=== PATIENT | male | born 1970 | race Caucasian/White ===

== ENCOUNTER → 2021-11-05 | Day surgery (SDC) | payer BC ==
--- NOTE | 2021-11-03 08:53 | PCM.SN.2 ---
- Free Text/Narrative Note: Right selective femoral nerve block at the adductor canal for post-procedure pain control under US guidance requested by Dr. Fuchs. Time Out: 850 Start: 850 End: 854 Chart reviewed. Consent signed. Questions answered. Appropriate monitors applied. Time out performed. Right mid-shaft femur identified with ultrasound, scanning medially of femur, the femoral artery in the adductor canal visualized, and the femoral nerve located laterally to the artery. The skin was prepped lateral to the ultrasound probe with chlorahexadine times two. The 21ga 4 insulated block needle was inserted under direct ultrasound guidance into the adductor canal. 20mL of 0.5% ropivacaine with 1:200,000 epinephrine was injected circumferentially around the nerve with intermittent negative aspiration noted. Patient tolerated the procedure well. Sterile technique noted along with sterile gloves, mask, and sterile probe cover. See picture on progress note and vital signs on nurses notes. Block completed in PACU. Thank you, Marie Parrish CRNA
--- NOTE | 2021-11-03 11:46 | PCM.PREANE ---
Preanesthetic Assessment - Procedure Proposed Procedure: Right Total Knee Arthroplasty - Anesthesia/Transfusion/Family Hx Anesthesia History: Prior Anesthesia Without Reaction Family History of Anesthesia Reaction: No Transfusion History: No Prior Transfusion(s) Intubation History: Unknown - Review of Systems General: No Symptoms Pulmonary: No Symptoms Cardiovascular: No Symptoms (HTN, Elevated cholesterol) Gastrointestinal: No Symptoms (GERD: controlled) Neurological: No Symptoms (History of Back pain: 11/30 History of vertigo/menierres disease), Numbness (bilateral feet numbness) Other: Reports: None - Physical Assessment NPO Status Date: 11/04/21 NPO Status Time: 22:00 Vital Signs: HR: 70 Sat: 96% Temp: 96/9 B/P: 149/107 Resp: 16 Height: 1.83 m Weight: 110 kg ASA Class: 3 Mental Status: Alert & Oriented x3 Airway Class: Mallampati = 2 Dentition: Reports: Normal Dentition, [place](s), [place] Thyro-Mental Finger Breadths: 3 Mouth Opening Finger Breadths: 3 ROM/Head Extension: Full Lungs: Clear to Auscultation, Normal Respiratory Effort Cardiovascular: Regular Rate, Regular Rhythm, No Murmurs - Lab Values: All labs reviewed and noted and within acceptable ranges to proceed with scheduled procedure. - Imaging/EKG Impressions: EKG: SR rate=67 CXR: negative - Allergies Allergies/Adverse Reactions: Allergies Allergy/AdvReac Type Severity Reaction Status Date / Time oxycodone Allergy Dizziness Verified 11/08/16 11:02 - Anesthesia Plan Pre-Op Medication Ordered: Other (Preoperative oral pain meds (lyrica, tylenol, oxycontin): @ 0626) - Acknowledgements Anesthesia Type Planned: Spinal (Right Adductor Canal Block under US guidance for post operative pain control requested by Dr. Fuchs.) Pt an Appropriate Candidate for the Planned Anesthesia: Yes Alternatives and Risks of Anesthesia Discussed w Pt/Guardian: Yes Pt/Guardian Understands and Agrees with Anesthesia Plan: Yes PreAnesthesia Questionnaire Cardiovascular History: Reports: Hypertension - Past Surgical History Musculoskeletal Surgical History: Reports: Other (See Below) - HOME MEDS Home Medications: Home Meds Simvastatin [Zocor] 20 mg PO DAILY 12/06/15 [History] Benazepril/Hydrochlorothiazide [Benazepril-HCTZ 20-12.5 MG] 1 tab PO DAILY 11/08/16 [History] carvediloL [Carvedilol] 12.5 mg PO BID 11/08/16 [History] Aspirin [Aspirin EC] 325 mg PO BID #60 tab 11/04/21 [Rx] Cyclobenzaprine [Flexeril] 10 mg PO BID PRN #20 tab 11/04/21 [Rx] oxyCODONE 5 - 10 mg PO Q4H PRN #40 tab 11/04/21 [Rx] - CURRENT (IN HOUSE) MEDS Current Meds: Current Medications Lactated Ringer's (Ringers, Lactated) 1,000 mls @ 125 mls/hr IV ASDIRECTED YOHANNES Stop: 11/05/21 23:00 Lidocaine/Sodium Bicarbonate (Lidocaine 1%/Sod Bicarbonate In Ns 8.4% 1 Ml Syringe) 0.25 ml IDERM ONETIME PRN PRN Reason: Prior to IV Start Stop: 11/05/21 18:00 Sodium Chloride (Sodium Chloride 0.9% 10 Ml Syringe) 10 ml FLUSH ASDIRECTED PRN PRN Reason: Keep Vein Open Stop: 11/05/21 18:00
[~2021-11-05] MED LIST: Acetaminophen 325 MG Tab PO SCH; EPINEPHrine 1 MG/ML SDV ONE; Ketamine 500 mg/10 ML MDV ONE; Ketorolac 30 MG/ML SDV ONE; Lactated Ringers 1,000 ML ONE; Lidocaine 1%/Sod Bicarbonate in NS 8.4% 1 ML Syringe IDERM PRN; Midazolam 1 MG/ML 2 ML SDV IVPUSH PRN; Midazolam 1 MG/ML 2 ML SDV ONE; Ondansetron 4 MG/2 ML SDV IVPUSH PRN; Ondansetron 4 MG/2 ML SDV ONE; Pregabalin 25 MG Cap PO SCH; Propofol 200 MG/20 ML SDV ONE; Ropivacaine 0.5% 5 MG/ML 30 ML SDV ONE; Scopolamine 1.5 MG Transdermal Patch TOP ONE; Sodium Chloride 0.9% 10 ML Syringe FLUSH PRN; ceFAZolin 1 GM Vial ONE; diphenhydrAMINE 50 MG/ML SDV IVPUSH PRN; ePHEDrine 50 MG/ML SDV IVPUSH PRN; fentaNYL 100 MCG/2 ML SDV IVPUSH PRN; fentaNYL 100 MCG/2 ML SDV ONE; oxyCODONE 5 MG Tab PO PRN; oxyCODONE ER 10 MG TAB.ER PO SCH
[2021-11-05] MEDS: Lactated Ringers 1,000 ML IV SCH ×2 (06:15→16:35)
[2021-11-05] MEDS: Morphine 8 MG, EPINEPHrine 0.3 MG, Cefuroxime 750 MG, Ketorolac 30 MG, Sodium Chloride ... PRN ×10 (08:02→08:17)
[2021-11-05] MEDS: Vancomycin 1 GM SDV ONE ×2 (08:07→08:24)
--- NOTE | 2021-11-05 09:05 | PCM.POSTAN ---
POST ANESTHESIA ASSESSMENT - MENTAL STATUS Mental Status: Alert - VITAL SIGNS Vital Signs: Last Vital Signs Temp 36.9 C 11/05/21 08:45 Pulse 91 11/05/21 08:45 Resp 10 L 11/05/21 08:45 BP 115/73 11/05/21 08:45 Pulse Ox 94 L 11/05/21 08:45 - RESPIRATORY Respiratory Status: Respiratory Rate WNL, Airway Patent, O2 Saturation Stable, Supplemental Oxygen - CARDIOVASCULAR CV Status: Pulse Rate WNL, Blood Pressure Stable - GASTROINTESTINAL GI Status: No Symptoms - POST OP HYDRATION Hydration Status: Adequate & Stable
--- NOTE | 2021-11-05 09:43 | PCM48HPAN ---
Post Anesthesia Note - EVALUATION WITHIN 48HRS OF ANESTHETIC Vital Signs in Normal Range: Yes Patient Participated in Evaluation: Yes Respiratory Function Stable: Yes Airway Patent: Yes Cardiovascular Function Stable: Yes Hydration Status Stable: Yes Pain Control Satisfactory: Yes Nausea and Vomiting Control Satisfactory: Yes Mental Status Recovered: Yes Vital Signs: Last Vital Signs Temp 36.6 C 11/05/21 09:30 Pulse 82 11/05/21 09:30 Resp 10 L 11/05/21 09:30 BP 134/80 11/05/21 09:30 Pulse Ox 92 L 11/05/21 09:30
--- NOTE | 2021-11-05 09:47 | CR ---
Right knee: AP and crosstable lateral views of the right knee were obtained. Comparison: Prior CT right knee study of 10/23/21. Knee prosthesis is noted. Patellar prosthesis is also seen. Components are aligned. Underlying bony structures show nothing acute. Soft tissue air is noted. Impression: 1. Satisfactory postoperative radiographic appearance of recently placed right knee prostheses. Diagnostic code #2
[2021-11-05 16:30] VITALS: BP 135/86; PULSE 81
--- NOTE | 2021-11-26 08:02 | PCM.OPNOTE ---
- General Post-Op/Procedure Note Date of Surgery/Procedure: 11/05/21 Operative Procedure(s): right total knee arthroplasty with red pradeep robotics Pre Op Diagnosis: right knee osteoarthrosis Post-Op Diagnosis: Same Anesthesia Technique: Local, MAC, Spinal Primary Surgeon: Harish Fuchs Anesthesia Provider: Marie Parrish Metal Off Bearer: Samantha Urban Metal Off Bearer: Hansa Hdz EBL in mLs: 200 Complications: None Condition: Good Free Text/Narrative:: 05/27 9mm 38x11
--- NOTE | 2021-11-26 08:50 | OR ---
DATE OF OPERATION: 11/05/2021 SURGEON: Harish Fuchs MD OPERATION PERFORMED: Right total knee arthroplasty with Jasper Papo robotics. PREOPERATIVE DIAGNOSIS: Right knee osteoarthrosis. POSTOPERATIVE DIAGNOSIS: Right knee osteoarthrosis. ANESTHESIA: Local MAC with spinal. ANESTHESIA PROVIDER: Marie Parrish CRNA ASSISTANTS: Samantha Urban PA-C and Hansa Hdz LPN ESTIMATED BLOOD LOSS: 200 mL. COMPLICATIONS: None. CONDITION: Stable. IMPLANTS: 1. Jasper size 7 press-fit CR femur. 2. Danny size 7 press-fit tibial baseplate. 3. Danny size 7, 9 mm CS polyethylene insert. 4. Jasper size 38 x 11 mm press-fit patella. DESCRIPTION OF PROCEDURE: The patient was identified in the preop holding area. Proper site was marked and identified by the surgeon. The patient was taken back to the operating theater, where after adequate anesthesia, the patient's right lower extremity had a nonsterile tourniquet applied and then it was sterilely prepped and draped in the usual sterile fashion. OR time-out was performed. The patient received 2 g IV Ancef. Leg flores was then applied to the right lower extremity. At this time, the right lower extremity was exsanguinated. Tourniquet was insufflated to 250 mmHg. Standard anterior incision was made. Medial parapatellar arthrotomy was created. Deep fibers of the MCL were raised and anterior fat pad was resected. Attention was turned to the patella. Patella measured a 26, it was resected to a 15 for a 38 x 11 mm patella. Drill holes were then drilled. Attention was then turned to the femur. Two 4.0 Schanz pins were placed intra-incisionally on the femur for the Danny Papo robotic array and then 2 more were placed on the tibia 3 fingerbreadths below the tibial tubercle. The Danny Papo robotic arrays were placed on both the femur and the tibia at this time as well as checkpoints on the femur and tibia. Hip center rotation was then obtained. The medial and lateral malleoli were marked as well as the checkpoints were marked for the Danny Papo robotic plan. The patient's knee was brought to full extension, varus and valgus stresses were applied, and then into 90 degrees of flexion. Danny Papo robotic plan for this patient was then undertaken to match the flexion and extension gaps. A straight saw blade was then brought in. Tibial cut was completed as well as an anterior femoral cut, anterior chamfer cut, and posterior femoral cut. Saw blade was then switched out and the distal femoral cut as well as the posterior chamfer cut was completed. All bony fragments were removed. At this time, medial and lateral menisci were resected as well as any posterior osteophytes. Attention was turned to the tibia. The size 7 trial baseplate was placed on the tibia and a size 7 trial femur was placed on the femur. A size 7, 9 mm trial poly was placed. The patient's knee was brought to full extension and flexion. Varus and valgus stresses were applied, was found to be stable with no instability. No signs of liftoff or loosening on the tibial baseplate. At this time, femoral drill holes were drilled, and the tibia was stamped and drilled in proper rotation. All trial implants were then removed. The size 7 tibial baseplate was impacted into place, size 7 femoral component was impacted into place, and then a size 7, 9 mm CS polyethylene insert was impacted into place. A size 38 x 11 mm press-fit patella was then press-fit into place. The tourniquet was deflated. Bleeders were cauterized. 1 L pulse lavage irrigation with Ancef was irrigated through the knee along with 400 mL Irrisept irrigation. Periarticular injection was completed. Topical tranexamic acid and vancomycin powder were applied. All checkpoints and pins were removed. At this point, a #2 barbed suture was used for closure of the medial parapatellar arthrotomy in flexion. 2- 0 Vicryl and Stratafix were used for subcutaneous closure. Prineo was used for cutaneous closure. 3-0 nylons were used for closure of the pin holes on the tibia. The patient had a sterile soft dressing applied. The patient had an CHARISSE wrap applied and was sent to PACU in stable condition. The patient tolerated the procedure well. MMODAL /[id number]
== END | disposition home or self-care (01) ==
LOC: JD.SDS 06:24
PROVIDERS: ATTEND Orthopaedic Surgery
DX: M17.11 Unilateral primary osteoarthritis, right knee (principal); K21.9 Gastro-esophageal reflux disease without esophagitis; I10 Essential (primary) hypertension; E78.5 Hyperlipidemia, unspecified; G89.29 Other chronic pain; Z98.890 Other specified postprocedural states; Z88.5 Allergy status to narcotic agent; Z91.030 Bee allergy status; Z79.899 Other long term (current) drug therapy; Z79.82 Long term (current) use of aspirin
CPT/HCPCS: 27447; 73560; 97110; 97116; 97161; A9270; C1713; C1776; J0171; J0690; J0697; J1200; J1885; J2250; J2270; J2370; J2405; J2704; J2795; J3010; J3370; J7120; 01402; 64450; 76942

== ENCOUNTER 2021-11-08 21:53 | Emergency (ER) | payer BC ==
[2021-11-08 22:03] VITALS: BP 134/79; PULSE 82
--- NOTE | 2021-11-08 22:19 | EDM.PDOC ---
ED HPI GENERAL MEDICAL PROBLEM - General Chief Complaint: Lower Extremity Injury/Pain Stated Complaint: SWOLLEN RT KNEE/FEVER Time Seen by Provider: 11/08/21 22:18 - History of Present Illness INITIAL COMMENTS - FREE TEXT/NARRATIVE: 51-year-old male presents the emergency room with right knee pain and swelling. Patient is 2 weeks post right knee arthroplasty done with Dr. Fuchs. He has done well postoperatively however over the last day and a half or so he has noticed increased swelling to the knee and today he noticed increased redness along the medial aspect of the knee as well as some warmth. Patient has not had any f robbi or chills. He has decreased his activity a little bit today. Right Knee Pain Score (Numeric/FACES): 4 - Related Data Allergies Allergy/AdvReac Type Severity Reaction Status Date / Time bee pollen Allergy Anaphylactic Verified 11/05/21 07:07 Shock hydrocodone Allergy Hallucinati Verified 11/08/21 22:04 ons Home Meds: Home Meds Benazepril/Hydrochlorothiazide [Benazepril-HCTZ 20-12.5 MG] 1 tab PO DAILY 11/08/16 [History] Aspirin [Aspirin EC] 325 mg PO BID #60 tab 11/04/21 [Rx] Cyclobenzaprine [Flexeril] 10 mg PO BID PRN #20 tab 11/04/21 [Rx] oxyCODONE 5 - 10 mg PO Q4H PRN #40 tab 11/04/21 [Rx] Aspirin [Aspirin EC] 81 mg PO DAILY 11/05/21 [History] Cholecalciferol (Vitamin D3) [Vitamin D3] 1 cap PO DAILY 11/05/21 [History] Diclofenac Sodium [Voltaren] 1 tab PO DAILY 11/05/21 [History] Multivitamin 1 tab PO DAILY 11/05/21 [History] Ranitidine [Zantac] 1 tab PO DAILY 11/05/21 [History] atorvaSTATin Calcium [Lipitor] 40 mg PO DAILY 11/05/21 [History] Past Medical History Cardiovascular History: Reports: Hypertension - Past Surgical History HEENT Surgical History: Reports: Tonsillectomy Cardiovascular Surgical History: Reports: None Musculoskeletal Surgical History: Reports: Other (See Below) Other Musculoskeletal Surgeries/Procedures:: right knee replacement Social & Family History - Tobacco Use Tobacco Use Status *Q: Never Tobacco User Second Hand Smoke Exposure: No - Caffeine Use Caffeine Use: Reports: Coffee, Soda - Recreational Drug Use Recreational Drug Use: No Review of Systems - Review of Systems Review Of Systems: See Below Constitutional: Reports: No Symptoms Respiratory: Reports: No Symptoms Cardiovascular: Reports: No Symptoms GI/Abdominal: Reports: No Symptoms ED EXAM, GENERAL - Physical Exam Exam: See Below Exam Limited By: No Limitations General Appearance: Alert, No Apparent Distress Respiratory/Chest: No Respiratory Distress, Lungs Clear, Normal Breath Sounds Cardiovascular: Regular Rate, Rhythm, No Edema, No Rub Extremities: Other (Exam of the right knee shows some medial redness with some slight warmth mean. The redness is demarcating somewhat. No drainage noted incision healing well mild swelling to the knee.) Course - Vital Signs Last Recorded V/S: Last Vital Signs Temp 36.3 C 11/08/21 22:03 Pulse 82 11/08/21 22:03 Resp 18 11/08/21 22:03 BP 134/79 11/08/21 22:03 Pulse Ox 95 11/08/21 22:03 - Orders/Labs/Meds Labs: Laboratory Tests 11/08/21 11/08/21 11/08/21 Range/Units 22:45 22:45 22:45 WBC 5.75 (4.23-9.07) K/mm3 RBC 4.52 L (4.63-6.08) M/mm3 Hgb 13.5 L D (13.7-17.5) gm/dl Hct 40.1 (40.1-51.0) % MCV 88.7 D (79.0-92.2) fl MCH 29.9 (25.7-32.2) pg MCHC 33.7 (32.2-35.5) g/dl RDW Std Deviation 42.7 (35.1-43.9) fL Plt Count 197 (163-337) K/mm3 MPV 9.4 (9.4-12.3) fl Neutrophils % (Manual) 61 H (40-60) % Band Neutrophils % 0 (0-10) % Lymphocytes % (Manual) 21 (20-40) % Atypical Lymphs % 0 % Monocytes % (Manual) 13 H (2-10) % Eosinophils % (Manual) 5 (0.8-7.0) % Basophils % (Manual) 0 L (0.2-1.2) Platelet Estimate Adequate Plt Morphology Comment Normal RBC Morph Comment Normal ESR 60 H (0-15) mm/hr Sodium 138 (136-145) mEq/L Potassium 3.9 (3.5-5.1) mEq/L Chloride 100 (98-107) mEq/L Carbon Dioxide 31 (21-32) mEq/L Anion Gap 10.9 (5-15) BUN 19 H (7-18) mg/dL Creatinine 0.9 (0.7-1.3) mg/dL Est Cr Clr Drug Dosing 104.19 mL/min Estimated GFR (MDRD) > 60 (>60) mL/min BUN/Creatinine Ratio 21.1 H (14-18) Glucose 122 H (70-99) mg/dL Calcium 9.0 (8.5-10.1) mg/dL Total Bilirubin 0.5 (0.2-1.0) mg/dL AST 15 (15-37) U/L ALT 32 (16-63) U/L Alkaline Phosphatase 54 (46-116) U/L C-Reactive Protein 11.5 H* (<1.0) mg/dL Total Protein 6.8 (6.4-8.2) g/dl Albumin 3.0 L (3.4-5.0) g/dl Globulin 3.8 gm/dL Albumin/Globulin Ratio 0.8 L (1-2) - Re-Assessments/Exams Free Text/Narrative Re-Assessment/Exam: 11/09/21 00:05 Case and labs discussed with Dr. Fuchs who would like to see the patient in the office tomorrow, Tuesday. Departure - Departure Time of Disposition: 00:05 Disposition: Home, Self-Care 01 Clinical Impression: Postoperative pain of knee, Knee swelling - Discharge Information Referrals: John Coker MD [Primary Care Provider] - Forms: ED Department Discharge Additional Instructions: Return to the emergency room with any questions problems or worsening symptoms. Follow-up with Dr. Fuchs this morning, call his office as soon as they open for an appointment time. Sepsis Event Note (ED) - Focused Exam Vital Signs: Vital Signs Temp Pulse Resp BP Pulse Ox 11/08/21 22:03 36.3 C 82 18 134/79 95
== END 2021-11-09 00:13 | disposition home or self-care (01) ==
LOC: JD.ED 21:53
DX: G89.18 Other acute postprocedural pain (principal); M25.561 Pain in right knee; M79.89 Other specified soft tissue disorders; I10 Essential (primary) hypertension; Z91.030 Bee allergy status; Z88.5 Allergy status to narcotic agent; Z79.82 Long term (current) use of aspirin; Z79.899 Other long term (current) drug therapy
CPT/HCPCS: 36415; 80053; 85007; 85027; 85652; 86140; 99283

== ENCOUNTER 2022-10-18 12:07 | Day surgery (SDC) | payer BC ==
[~2022-10-18 12:07] MED LIST changes: -Acetaminophen 325 MG Tab PO SCH; +Bupivacaine 0.25% 10 ML SDV ONE; +EPINEPHrine 1 MG/ML 30 ML MDV IRR SCH; -EPINEPHrine 1 MG/ML SDV ONE; -Ketamine 500 mg/10 ML MDV ONE; -Ketorolac 30 MG/ML SDV ONE; +Lactated Ringers 1,000 ML IV SCH; -Lactated Ringers 1,000 ML ONE; +Lidocaine 1% 6 ML ONE; -Midazolam 1 MG/ML 2 ML SDV IVPUSH PRN; -Ondansetron 4 MG/2 ML SDV IVPUSH PRN; -Pregabalin 25 MG Cap PO SCH; -Ropivacaine 0.5% 5 MG/ML 30 ML SDV ONE; -Scopolamine 1.5 MG Transdermal Patch TOP ONE; +Sodium Chloride 0.9% 10 ML Syringe FLUSH SCH; -ceFAZolin 1 GM Vial ONE; -diphenhydrAMINE 50 MG/ML SDV IVPUSH PRN; -ePHEDrine 50 MG/ML SDV IVPUSH PRN; -fentaNYL 100 MCG/2 ML SDV IVPUSH PRN; -oxyCODONE 5 MG Tab PO PRN; -oxyCODONE ER 10 MG TAB.ER PO SCH
[2022-10-18] MEDS ORDERED: Lactated Ringers 1,000 ML ONE (12:34)
[2022-10-18] MEDS ORDERED: ceFAZolin 2 GM Vial ONE (12:45)
[2022-10-18] MEDS ORDERED: Dexamethasone 4 MG/ML 5 ML MDV ONE (13:15)
[2022-10-18] MEDS ORDERED: Ketorolac 30 MG/ML SDV ONE (13:24)
[2022-10-18] MEDS ORDERED: fentaNYL 100 MCG/2 ML SDV IVPUSH PRN (13:43)
[2022-10-18] MEDS ORDERED: HYDROmorphone 0.5 MG/0.5 ML Syringe IVPUSH PRN (13:43)
[2022-10-18] MEDS ORDERED: oxyCODONE 5 MG Tab PO SCH (14:40)
[2022-10-18 16:44] VITALS: BP 120/83; PULSE 70
== END 2022-10-18 15:25 | disposition home or self-care (01) ==
LOC: JD.SDS 12:07
PROVIDERS: ATTEND Orthopaedic Surgery
DX: T84.82XA Fibrosis due to internal orthopedic prosthetic devices, implants and grafts, initial encounter (principal); I10 Essential (primary) hypertension; E78.00 Pure hypercholesterolemia, unspecified; K21.9 Gastro-esophageal reflux disease without esophagitis; Z96.651 Presence of right artificial knee joint; Z79.899 Other long term (current) drug therapy; Z79.82 Long term (current) use of aspirin; Z88.5 Allergy status to narcotic agent; Z91.030 Bee allergy status; Z98.890 Other specified postprocedural states
CPT/HCPCS: 29875; A9270; J0171; J0690; J1100; J1885; J2250; J2405; J2704; J3010; J3490; J7120; 01400

== ENCOUNTER 2023-05-26 10:41 | Day surgery (SDC) | payer BC, OTHER ==
[~2023-05-26 10:41] MED LIST changes: -Bupivacaine 0.25% 10 ML SDV ONE; -EPINEPHrine 1 MG/ML 30 ML MDV IRR SCH; +Lidocaine 1% 5 ML VIAL ONE; -Lidocaine 1% 6 ML ONE; -Lidocaine 1%/Sod Bicarbonate in NS 8.4% 1 ML Syringe IDERM PRN; -Ondansetron 4 MG/2 ML SDV ONE
[2023-05-26] MEDS ORDERED: fentaNYL 100 MCG/2 ML SDV ONE (11:17)
[2023-05-26] MEDS ORDERED: Midazolam 1 MG/ML 2 ML SDV ONE (11:17)
[2023-05-26] MEDS ORDERED: Ropivacaine 0.5% 5 MG/ML 30 ML SDV ONE (11:26)
[2023-05-26] MEDS ORDERED: EPINEPHrine 1 MG/ML SDV ONE (11:40)
[2023-05-26] MEDS ORDERED: Dexamethasone 4 MG/ML 5 ML MDV ONE (12:10)
[2023-05-26] MEDS ORDERED: Ondansetron 4 MG/2 ML SDV ONE (12:10)
[2023-05-26] MEDS ORDERED: ceFAZolin 2 GM Vial ONE (12:10)
[2023-05-26] MEDS ORDERED: Lactated Ringers 1,000 ML ONE (12:12)
[2023-05-26] MEDS ORDERED: HYDROmorphone 0.5 MG/0.5 ML Syringe IVPUSH PRN (12:35)
[2023-05-26] MEDS ORDERED: fentaNYL 100 MCG/2 ML SDV IVPUSH PRN (12:35)
[2023-05-26] MEDS ORDERED: Ketorolac 30 MG/ML SDV ONE (13:00)
[2023-05-26] MEDS ORDERED: oxyCODONE 5 MG Tab PO SCH (13:37)
[2023-05-26 14:51] VITALS: PULSE 78
[2023-05-26 15:33] VITALS: BP 136/78
== END 2023-05-26 15:30 | disposition home or self-care (01) ==
LOC: JD.SDS 10:41
PROVIDERS: ATTEND Orthopaedic Surgery
DX: S46.211A Strain of muscle, fascia and tendon of other parts of biceps, right arm, initial encounter (principal); I10 Essential (primary) hypertension; K21.9 Gastro-esophageal reflux disease without esophagitis; E78.5 Hyperlipidemia, unspecified; E66.9 Obesity, unspecified; Z79.82 Long term (current) use of aspirin; Z79.899 Other long term (current) drug therapy; Z88.5 Allergy status to narcotic agent; Z98.890 Other specified postprocedural states; X50.0XXA Overexertion from strenuous movement or load, initial encounter; Z68.33 Body mass index [BMI] 33.0-33.9, adult
CPT/HCPCS: 24342; 64415; 76000; C1776; J0171; J0690; J1100; J1885; J2250; J2405; J2704; J2795; J3010; J7120; 01710; 64417; J3490

== ENCOUNTER 2024-12-17 14:26 | Emergency (ER) | payer BC, OTHER ==
[2024-12-17 15:43] LABS: BASOPHILS ABSOLUTE AUTO 0.1 K/mm3 (0.0-0.2); BASOPHILS PERCENT AUTO 0.6 % (0.0-1.0); EOSINOPHILS ABSOLUTE AUTO 0.1 K/mm3 (0.0-0.4); EOSINOPHILS PERCENT AUTO 1.1 % (0.0-6.0); HEMATOCRIT 45.6 % (42.0-52.0); HEMOGLOBIN 15.6 gm/dl (14.0-18.0); IMMATURE GRAN ABSOLUTE AUTO 0.12 K/mm3 (0.00-0.05); IMMATURE GRAN PERCENT AUTO 1.4 % (0.0-0.4); LYMPHOCYTES ABSOLUTE AUTO 0.4 K/mm3 (1.0-4.8); LYMPHOCYTES PERCENT AUTO 4.7 % (24.0-44.0); MEAN CORPUSCULAR HEMOGLOBIN 28.8 pg (28.0-32.0); MEAN CORPUSCULAR HGB CONC 34.2 g/dl (32.0-36.0); MEAN CORPUSCULAR VOLUME 84.1 fl (83.0-99.0); MEAN PLATELET VOLUME 10.1 fl (9.4-12.4); MONOCYTES ABSOLUTE AUTO 0.8 K/mm3 (0.0-0.8); MONOCYTES PERCENT AUTO 8.8 % (0.0-8.0); NEUTROPHILS ABSOLUTE AUTO 7.2 K/mm3 (1.8-7.7); NEUTROPHILS PERCENT AUTO 83.4 % (41.0-71.0); PLATELET COUNT,PLT 164 K/mm3 (150-400); RED BLOOD CELL COUNT 5.42 M/mm3 (4.52-5.90); WHITE BLOOD CELL COUNT,WBC 8.56 K/mm3 (3.9-11.3)
[2024-12-17 15:54] LABS: A/G RATIO 1.3 (1-2); ANION GAP 14.8 (5-15); BILIRUBIN TOTAL 0.8 mg/dL (0.2-1.0); BUN/CREATININE RATIO 18.2 (14-18); C-REACTIVE PROTEIN 1.41 mg/dL (<0.30); CALCIUM 8.3 mg/dL (8.5-10.1); CREATININE 1.1 mg/dL (0.7-1.3); EST CRCL DRUG DOSING (CG) 82.3 mL/min; POTASSIUM,K 3.8 mEq/L (3.5-5.1)
[2024-12-17] MEDS: Sodium Chloride 0.9% 1,000 ML IV ONE (16:05)
[2024-12-17] MEDS: Oseltamivir 75 MG Cap PO ONE (18:15)
[2024-12-17] MEDS: Amoxicillin/Clavulanate K 875-125 MG Tab PO ONE (18:15)
[2024-12-17] MEDS: Pseudoephedrine 30 MG Tab PO ONE (18:16)
[2024-12-17 20:59] VITALS: BP 134/89; PULSE 78
== END 2024-12-17 18:20 | disposition home or self-care (01) ==
LOC: JD.ED 14:26
DX: J10.1 Influenza due to other identified influenza virus with other respiratory manifestations (principal); J01.91 Acute recurrent sinusitis, unspecified; I10 Essential (primary) hypertension; E78.00 Pure hypercholesterolemia, unspecified; E66.9 Obesity, unspecified; Z79.899 Other long term (current) drug therapy; Z79.82 Long term (current) use of aspirin; Z88.5 Allergy status to narcotic agent; Z91.030 Bee allergy status; Z68.36 Body mass index [BMI] 36.0-36.9, adult
CPT/HCPCS: 36415; 70486; 71045; 80053; 85025; 86140; 87428; 96360; 99284; A9270; J7030